=== PATIENT | female | born 1985 | race African-American/Black ===

== ENCOUNTER 2023-05-29 18:21 | Inpatient (IN) | payer MEDICAID, OTHER, SELFPAY ==
[2023-05-29] MEDS ORDERED: Acetaminophen 500 MG TAB ONE (19:02)
[2023-05-29] MEDS ORDERED: Cefepime 2 GM VIAL ONE (19:02)
[2023-05-29] MEDS ORDERED: Sodium Chloride 0.9% 100 ML ONE (19:02)
[2023-05-29 19:16] LABS: #Basophils 0.04 10x3/uL (0.0-0.2); %Basophils 0.3 % (0.0-1.0); %Eosinophils 0.3 % (0.0-10.0); %Lymphocytes 14.2 % (21.0-51.0); %Monocytes 7.3 % (0.0-10.0); %Neutrophils 77.6 % (42.0-75.0); Hematocrit 34.4 % (36.0-47.0); Hemoglobin 10.1 g/dL (12.0-16.0); Mean Corpuscular HGB CONC 29.4 g/dL (32.0-36.0); Mean Corpuscular Hemoglobin 24.1 pg (27.0-31.0); Mean Corpuscular Volume 82.1 fL (78.0-98.0); Mean Platelet Volume 9.7 fL (7.4-10.4); Platelet Count 262 10x3/uL (130-400); RBC Distribution Width 19.2 % (11.5-14.5); Red Blood Cell (RBC) Count 4.19 mill/uL (4.20-5.40)
[2023-05-29 19:32] LABS: BHCG - Serum Negative (NEGATIVE); Pregs Control Background? CLEAR/WHITE (CLR/WHITE); Pregs Control Bar Appear? YES (CONTROL BAR)
[2023-05-29 19:34] LABS: Anion Gap 19 mmol/L (10-20); Globulin 5.3 g/dL (2.4-3.5)
[2023-05-29 19:37] LABS: Acetaminophen Less than 10 mcg/mL (10.0-30.0); Alcohol Less than 10.0 mg/dL (Less than 10); Lipase 38 U/L (8-78); Magnesium 1.6 mg/dL (1.6-2.6); Salicylate Less than 8.0 mg/dL (15.0-30.0)
[2023-05-29 19:42] LABS: ALT (SGPT) 15 U/L (8-55); AST (SGOT) 15 U/L (5-34); Albumin 2.7 g/dL (3.5-5.0); Alkaline Phosphatase 137 U/L (40-110); BUN (Urea Nitrogen) 15 mg/dL (7.0-18.7); Bilirubin, Total 0.6 mg/dL (0.2-1.2); Calc. Creatinine Clearance 0 mL/min (70-130); Calcium 9.1 mg/dL (7.8-10.44); Carbon Dioxide 19 mmol/L (22-29); Chloride 97 mmol/L (98-107); Estimated GFR 37; Glucose 489 mg/dL (70-105); Sodium 131 mmol/L (136-145)
[2023-05-29 20:08] LABS: Amphetamine Not Detected (NotDetected); Bacteria/HPF None Seen HPF (None Seen); Barbiturates Screen Not Detected (NotDetected); Benzodiazepine Screen Not Detected (NotDetected); Bilirubin Negative (Negative); Blood, Urine 3+ (Negative); CAUTI Indications for Culture Pelvic or flank pain; Cocaine Metabolite Screen Not Detected (NotDetected); Glucose, Urine (Dipstick) Greater than 1000 mg/dL (Negative); Ketone, Urine Negative (Negative); Leukocyte 250 Leu/uL (Negative); Methadone Not Detected (NotDetected); Methamphetamine Not Detected (NotDetected); Nitrite Negative (Negative); Opiate Screen Not Detected (NotDetected); Oxycodone Screen Not Detected (NotDetected); Phencyclidine (PCP) Not Detected (NotDetected); Protein, Urine (Dipstick) 100 mg/dL (Neg-Trace); RBC/HPF Greater than 50 HPF (0-3); Specific Gravity, Urine 1.017 (1.002-1.036); Squamous Epithelial 0-3 HPF (0-3); THC/Cannabinoid Screen Not Detected (NotDetected); Tricyclic Screen Not Detected (NotDetected); Urobilinogen Normal mg/dL (Less than 2); WBC/HPF 0-3 HPF (0-3)
[2023-05-29 20:10] LABS: Clarity Slightly Cloudy (Clear)
[2023-05-29 20:11] LABS: Urine Culture Reflex No No
[2023-05-29 20:30] LABS: Actual Bicarbonate (HCO3v) 26.1 mEq/L (22-28); Calcium, Ionized (venous) 1.15 mmol/L (1.16-1.32); Chloride (VBG) 95 mmol/L (98-106); Hematocrit-VBG 32 % (36.0-47.0); Potassium (VBG) 4.17 mmol/L (3.70-5.30); Sodium 135 mmol/L (133-146); pH (venous) 7.343 (7.32-7.43)
[2023-05-29] MEDS ORDERED: Morphine 4 MG/ML VIAL ONE (21:10)
[2023-05-29] MEDS ORDERED: Ondansetron PF 4 MG/2 ML Vial ONE (21:10)
[2023-05-29 22:20] LABS: Lactic Acid 3.3 mmol/L (0.5-2.2)
[2023-05-29] MEDS ORDERED: Insulin Regular 300 UNITS/3 ML VIAL ONE (23:20)
[2023-05-29 23:46] LABS: Influenza A by NAA Not Detected (NotDetected); Influenza B by NAA Not Detected (NotDetected); SARS-CoV-2 NAA Rapid Test Not Detected (NotDetected)
[2023-05-30] MEDS ORDERED: Ketorolac Tromethamine 30 MG (1 mL) VIAL ONE (00:53)
[2023-05-30] MEDS ORDERED: Morphine 4 MG/ML VIAL ONE (00:53)
[2023-05-30] MEDS ORDERED: Acetaminophen 325 MG TAB PO PRN ×2 (02:15→02:38)
[2023-05-30] MEDS ORDERED: Ondansetron ODT 4 MG TAB SL PRN (02:15)
[2023-05-30] MEDS ORDERED: Ondansetron PF 4 MG/2 ML Vial IVP PRN (02:15)
[2023-05-30] MEDS ORDERED: Ondansetron ODT 4 MG TAB PO PRN (02:38)
[2023-05-30] MEDS ORDERED: Dextrose 50% Abboject 50 ML SYRINGE SLOW IVP PRN ×2 (02:40→15:52)
[2023-05-30] MEDS ORDERED: Glucagon 1 MG/ML KIT IM PRN ×2 (02:40→15:52)
[2023-05-30] MEDS ORDERED: Dextrose 5% in Water 1,000 ML IV PRN ×2 (02:40→15:52)
[2023-05-30] MEDS ORDERED: HumaLOG 300 UNITS/3 ML VIAL SC PRN (02:40)
[2023-05-30] MEDS ORDERED: Acetaminophen 500 MG TAB ONE (03:08)
[2023-05-30 03:55] LABS: #Basophils 0.03 10x3/uL (0.0-0.2); %Basophils 0.2 % (0.0-1.0); %Eosinophils 0.2 % (0.0-10.0); %Lymphocytes 11.1 % (21.0-51.0); %Monocytes 7.5 % (0.0-10.0); %Neutrophils 80.5 % (42.0-75.0); Hematocrit 31.2 % (36.0-47.0); Mean Corpuscular HGB CONC 28.8 g/dL (32.0-36.0); Mean Corpuscular Hemoglobin 23.6 pg (27.0-31.0); Mean Corpuscular Volume 81.9 fL (78.0-98.0); Mean Platelet Volume 9.7 fL (7.4-10.4); Platelet Count 239 10x3/uL (130-400); RBC Distribution Width 18.9 % (11.5-14.5); Red Blood Cell (RBC) Count 3.81 mill/uL (4.20-5.40)
[2023-05-30 03:57] LABS: Hemoglobin A1c 13.7 % (4.0-6.0)
[2023-05-30 04:24] LABS: Anion Gap 12 mmol/L (10-20); Globulin 4.7 g/dL (2.4-3.5)
[2023-05-30 04:28] LABS: ALT (SGPT) 12 U/L (8-55); AST (SGOT) 10 U/L (5-34); Albumin 2.4 g/dL (3.5-5.0); Alkaline Phosphatase 112 U/L (40-110); BUN (Urea Nitrogen) 15 mg/dL (7.0-18.7); Bilirubin, Total 0.6 mg/dL (0.2-1.2); Calc. Creatinine Clearance 0 mL/min (70-130); Calcium 8.5 mg/dL (7.8-10.44); Carbon Dioxide 25 mmol/L (22-29); Estimated GFR 33; Glucose 357 mg/dL (70-105); Potassium 4.3 mmol/L (3.5-5.1); Protein, Total 7.1 g/dL (6.0-8.3); Sodium 133 mmol/L (136-145)
[2023-05-30 04:52] LABS: Chloride 100 mmol/L (98-107)
[2023-05-30] MEDS ORDERED: Doxycycline 100 MG in Sodium Chloride 0.9% 100 ML IVPB SCH (05:00)
[2023-05-30 05:03] LABS: Anisocytosis SLIGHT = 6-15 cells HPF (0-5); Hypochromia SLIGHT = 6-15 cells HPF (0-5); Microcytosis SLIGHT = 6-15 cells HPF (0-5); Platelet Adequacy Comment Platelets Normal; Polychromasia SLIGHT = 2-3 cells HPF (0-2)
[2023-05-30] MEDS: Piperacillin/Tazobactam 3.375 GM in Sodium Chloride 0.9% 100 ML IVPB SCH (05:23)
[2023-05-30] MEDS: Piperacillin/Tazobactam 4.5 GM in Sodium Chloride 0.9% 100 ML IVPB SCH ×2 (05:49→08:35)
[2023-05-30] MEDS: Lactated Ringer's 1,000 ML IV SCH ×2 (05:52→07:09)
[2023-05-30] MEDS: Doxycycline 100 MG in Sodium Chloride 0.9% 100 ML IVPB SCH (06:10)
[2023-05-30] MEDS: HumaLOG 300 UNITS/3 ML VIAL SC PRN (06:17)
[2023-05-30] MEDS: Vancomycin (BATCH) 2.5 GM in Premix 1 BAG IVPB SCH (07:10)
[2023-05-30] MEDS: Famotidine/PF 20 mg/2ml Vial SLOW IVP SCH (08:36)
[2023-05-30] MEDS: Famotidine 20 MG TAB PO SCH (08:37)
[2023-05-30] MEDS: Acetaminophen 650 MG Suppository PR PRN (08:38)
[2023-05-30] MEDS ORDERED: PROPOFOL 20 ML ONE (13:31)
[2023-05-30] MEDS ORDERED: Lidocaine 1% PF 5 ML VIAL ONE (13:31)
[2023-05-30] MEDS ORDERED: Ondansetron PF 4 MG/2 ML Vial ONE (13:31)
[2023-05-30] MEDS ORDERED: Dexamethasone 20 MG/5 ML VIAL ONE (13:31)
[2023-05-30] MEDS ORDERED: SUCCINYLCHOLINE/SOD CL,ISO/PF 200 MG/10 ML SYRINGE FS ONE (13:31)
[2023-05-30] MEDS ORDERED: Rocuronium Bromide 10 MG/ML (10ML VIAL) ONE (13:31)
[2023-05-30] MEDS ORDERED: fentaNYL PF 100 MCG/2 ML SYRINGE ONE (13:33)
[2023-05-30] MEDS ORDERED: EPINEPHrine 1 MG/ML VIAL ONE (13:34)
[2023-05-30] MEDS ORDERED: Bupivacaine PF 0.5% 30 ML VIAL ONE (13:34)
[2023-05-30] MEDS ORDERED: PHENYLEPHRINE-NS 100 MCG/ML 10 ML SYRINGE ONE (14:31)
[2023-05-30] MEDS ORDERED: SUGAMMADEX SODIUM 200 MG/2 ML VIAL ONE ×2 (15:22→15:28)
[2023-05-30] MEDS ORDERED: Ventilator Sedation Protocol 1 EACH FS SCH (15:43)
[2023-05-30] MEDS ORDERED: DISCONTINUE PREVIOUS NARCOTIC PAIN MEDICATIONS AND BENZODIAZEPINES FS SCH (16:15)
[2023-05-30] MEDS ORDERED: Fentanyl BOLUS 250 ML IVPB PRN (16:15)
[2023-05-30] MEDS ORDERED: Propofol BOLUS 1,000 MG/100 ML VIAL IV PRN (16:15)
[2023-05-30 16:57] LABS: Actual Bicarbonate (HCO3a) 23.4 mEq/L (22-28); Base Excess (BEa) -2.5 mEq/L (-2.0 to +3.0); CO2 Tension 45.8 mmHg (35.0-45.0); Calcium, Ionized (arterial) 1.03 mmol/L (1.12-1.30); Carboxyhemoglobin (COHb) 1.5 gm% (0.0-3.0); Hematocrit-ABG 27 % (36.0-47.0); Hemoglobin (Hb) 9.1 g/dL (12.0-16.0); O2 Tension (PaO2), arterial 64.9 mmHg (80.0-100.0); Potassium - ABG Lab 4.62 mmol/L (3.70-5.30); pH, Arterial 7.327 (7.35-7.45)
[2023-05-30 16:58] LABS: Puncture Site LRA
[2023-05-30] MEDS: Fentanyl CADD 100 ML IV SCH (16:59)
[2023-05-30] MEDS: Lorazepam 2 MG/ML VIAL ONE (16:59)
[2023-05-30] MEDS: Sodium Chloride 0.9% 1,000 ML IV SCH (17:02)
[2023-05-30] MEDS: Acetaminophen 500 MG TAB PO SCH (17:52)
[2023-05-30] MEDS: Propofol 1,000 MG/100 ML VIAL IV PRN (17:52)
[2023-05-30] MEDS: Albumin 25% 25 GM (100 mL) BOT IVPB SCH ×2 (17:53→22:14)
[2023-05-30] MEDS: Ventilator Sedation Protocol 1 EACH FS ONE (18:17)
[2023-05-30] MEDS ORDERED: Vancomycin (BATCH) 1.75 GM in Premix 1 BAG IVPB SCH (20:00)
[2023-05-30] MEDS ORDERED: Vancomycin (BATCH) 2 GM in Premix 1 BAG IVPB SCH (20:00)
[2023-05-30] MEDS: Enoxaparin 60 MG (0.6 mL) SYRINGE SC SCH (20:39)
[2023-05-30] MEDS ORDERED: Famotidine 20 MG TAB PO SCH (21:00)
[2023-05-30] MEDS ORDERED: Famotidine/PF 20 mg/2ml Vial SLOW IVP SCH (21:00)
[2023-05-30] MEDS: Lorazepam 2 MG/ML VIAL SLOW IVP PRN (21:18)
[2023-05-30] MEDS: Insulin Glargine 30 UNITS/0.3 ML VIAL SC SCH (21:18)
[2023-05-31] MEDS: HumaLOG 300 UNITS/3 ML VIAL SC PRN (04:31)
[2023-05-31 06:09] LABS: #Basophils 0.03 10x3/uL (0.0-0.2); %Basophils 0.2 % (0.0-1.0); %Eosinophils 0.5 % (0.0-10.0); %Lymphocytes 12.9 % (21.0-51.0); %Monocytes 9.3 % (0.0-10.0); %Neutrophils 76.5 % (42.0-75.0); Hematocrit 25.1 % (36.0-47.0); Mean Corpuscular HGB CONC 27.9 g/dL (32.0-36.0); Mean Platelet Volume 10.1 fL (7.4-10.4); Platelet Count 193 10x3/uL (130-400); RBC Distribution Width 19.5 % (11.5-14.5); Red Blood Cell (RBC) Count 2.92 mill/uL (4.20-5.40)
[2023-05-31 06:30] LABS: Hypochromia SLIGHT = 6-15 cells HPF (0-5); Platelet Adequacy Comment Platelets Normal; Polychromasia SLIGHT = 2-3 cells HPF (0-2)
[2023-05-31 06:58] LABS: Anion Gap 14 mmol/L (10-20)
[2023-05-31 07:40] LABS: BUN (Urea Nitrogen) 22 mg/dL (7.0-18.7); Calc. Creatinine Clearance 85 mL/min (70-130); Calcium 7.7 mg/dL (7.8-10.44); Carbon Dioxide 23 mmol/L (22-29); Chloride 102 mmol/L (98-107); Estimated GFR 17; Glucose 381 mg/dL (70-105); Potassium 4.7 mmol/L (3.5-5.1); Sodium 134 mmol/L (136-145)
[2023-05-31] MEDS: Sodium Chloride 0.9% 1,000 ML IV SCH ×2 (08:21)
[2023-05-31] MEDS: Pantoprazole 40 MG VIAL IVP SCH (08:35)
[2023-05-31] MEDS: methylPREDNISolone Sod Succ 40 MG VIAL IVP SCH ×2 (12:24→16:13)
[2023-05-31 12:28] LABS: #Basophils 0.03 10x3/uL (0.0-0.2); %Basophils 0.2 % (0.0-1.0); %Eosinophils 0.5 % (0.0-10.0); %Lymphocytes 13.3 % (21.0-51.0); %Monocytes 9.3 % (0.0-10.0); %Neutrophils 75.8 % (42.0-75.0); Hematocrit 27.7 % (36.0-47.0); Hemoglobin 7.9 g/dL (12.0-16.0); Mean Corpuscular HGB CONC 28.5 g/dL (32.0-36.0); Mean Corpuscular Hemoglobin 24.6 pg (27.0-31.0); Mean Corpuscular Volume 86.3 fL (78.0-98.0); Mean Platelet Volume 10.2 fL (7.4-10.4); Platelet Count 218 10x3/uL (130-400); RBC Distribution Width 19.2 % (11.5-14.5); Red Blood Cell (RBC) Count 3.21 mill/uL (4.20-5.40)
[2023-05-31 13:38] LABS: Bacteria/HPF None Seen HPF (None Seen); Bilirubin Negative (Negative); Blood, Urine 2+ (Negative); Clarity Turbid (Clear); Glucose, Urine (Dipstick) 70 mg/dL (Negative); Ketone, Urine Trace mg/dL (Negative); Leukocyte 500 Leu/uL (Negative); Nitrite Negative (Negative); Protein, Urine (Dipstick) 100 mg/dL (Neg-Trace); Specific Gravity, Urine 1.031 (1.002-1.036); Squamous Epithelial 0-3 HPF (0-3); Urobilinogen Normal mg/dL (Less than 2); pH, Urine 5.5 (5.0-9.0)
[2023-05-31] MEDS: Doxycycline 100 MG in Sodium Chloride 0.9% 100 ML IVPB SCH (16:12)
[2023-06-01] MEDS: Morphine 2 MG/ML VIAL SLOW IVP PRN (03:37)
[2023-06-01 06:01] LABS: #Basophils Less than 0.03 10x3/uL (0.0-0.2); #Eosinphils Less than 0.03 10x3/uL (0.0-0.7); %Basophils 0.1 % (0.0-1.0); %Lymphocytes 5.3 % (21.0-51.0); %Monocytes 4.7 % (0.0-10.0); Hematocrit 32.7 % (36.0-47.0); Hemoglobin 9.1 g/dL (12.0-16.0); Mean Corpuscular HGB CONC 27.8 g/dL (32.0-36.0); Mean Corpuscular Hemoglobin 25.1 pg (27.0-31.0); Mean Corpuscular Volume 90.1 fL (78.0-98.0); Mean Platelet Volume 10.2 fL (7.4-10.4); Platelet Count 269 10x3/uL (130-400); RBC Distribution Width 19.3 % (11.5-14.5); Red Blood Cell (RBC) Count 3.63 mill/uL (4.20-5.40)
[2023-06-01 06:10] LABS: Anion Gap 24 mmol/L (10-20); Globulin 5.3 g/dL (2.4-3.5)
[2023-06-01 06:20] LABS: ALT (SGPT) 39 U/L (8-55); AST (SGOT) 103 U/L (5-34); Albumin 2.4 g/dL (3.5-5.0); Alkaline Phosphatase 87 U/L (40-110); BUN (Urea Nitrogen) 33 mg/dL (7.0-18.7); Calc. Creatinine Clearance 52 mL/min (70-130); Calcium 7.4 mg/dL (7.8-10.44); Carbon Dioxide 13 mmol/L (22-29); Chloride 102 mmol/L (98-107); Estimated GFR 9; Glucose 446 mg/dL (70-105); Potassium 6.4 mmol/L (3.5-5.1); Protein, Total 7.7 g/dL (6.0-8.3); Sodium 133 mmol/L (136-145)
[2023-06-01] MEDS: Insulin Regular 300 UNITS/3 ML VIAL IVP SCH (06:35)
[2023-06-01] MEDS: Sodium Bicarb 50 mEq/50 ML VIAL IVP SCH ×2 (06:35→10:08)
[2023-06-01] MEDS: Calcium Chloride 13.6 MEQ in Sodium Chloride 0.9% 100 ML IVPB SCH (06:38)
[2023-06-01] MEDS ORDERED: [UNRECOGNIZED DRUG - REMARK] IVPB PRN (07:36)
[2023-06-01 07:48] LABS: Base Excess (BEa) -14.4 mEq/L (-2.0 to +3.0); CO2 Tension 45.3 mmHg (35.0-45.0); Calcium, Ionized (arterial) 0.97 mmol/L (1.12-1.30); Carboxyhemoglobin (COHb) 1.6 gm% (0.0-3.0); Hematocrit-ABG 28 % (36.0-47.0); Hemoglobin (Hb) 9.6 g/dL (12.0-16.0); Potassium - ABG Lab 5.41 mmol/L (3.70-5.30)
[2023-06-01 07:53] LABS: O2 Tension (PaO2), arterial 58.4 mmHg (80.0-100.0); pH, Arterial 7.116 (7.35-7.45)
[2023-06-01 07:54] LABS: ALV-art Gradient 170.175 mmHg (0-20); Actual Bicarbonate (HCO3a) 14.3 mEq/L (22-28); Puncture Site RRA
[2023-06-01] MEDS ORDERED: Heparin 10,000 UNITS/ 10 ML VIAL ONE ×2 (08:39→10:03)
[2023-06-01] MEDS: Piperacillin/Tazobactam 2.25 GM in Sodium Chloride 0.9% 100 ML IVPB SCH (08:59)
[2023-06-01] MEDS: Enoxaparin 30 MG (0.3 mL) SYRINGE SC SCH (08:59)
[2023-06-01] MEDS ORDERED: CEFAZOLIN 2 GM in Sodium Chloride 0.9% 100 ML IVPB SCH (09:30)
[2023-06-01 09:57] LABS: Base Excess (BEa) -13.8 mEq/L (-2.0 to +3.0); CO2 Tension 35.2 mmHg (35.0-45.0); Calcium, Ionized (arterial) 0.96 mmol/L (1.12-1.30); Carboxyhemoglobin (COHb) 1.3 gm% (0.0-3.0); Hematocrit-ABG 27 % (36.0-47.0); Hemoglobin (Hb) 9.1 g/dL (12.0-16.0); O2 Tension (PaO2), arterial 69.2 mmHg (80.0-100.0); Potassium - ABG Lab 5.99 mmol/L (3.70-5.30)
[2023-06-01] MEDS ORDERED: Piperacillin/Tazobactam 3.375 GM in Sodium Chloride 0.9% 100 ML IVPB SCH (10:00)
[2023-06-01 10:01] LABS: pH, Arterial 7.194 (7.35-7.45)
[2023-06-01 10:02] LABS: Actual Bicarbonate (HCO3a) 13.3 mEq/L (22-28); Puncture Site RRA
[2023-06-01] MEDS ORDERED: Bupivacaine 0.25% HCL 30 ML VIAL ONE (10:03)
[2023-06-01] MEDS ORDERED: Iopamidol 15 ML ONE (10:03)
[2023-06-01] MEDS ORDERED: EPINEPHrine 1 MG/ML VIAL ONE (10:03)
[2023-06-01] MEDS ORDERED: Lidocaine 2% PF 5 ML VIAL ONE (10:03)
[2023-06-01] MEDS: Sodium Bicarb 50 mEq/50 ML VIAL ONE (10:08)
[2023-06-01 10:11] LABS: Anion Gap 26 mmol/L (10-20)
[2023-06-01 10:30] LABS: BUN (Urea Nitrogen) 34 mg/dL (7.0-18.7); Calc. Creatinine Clearance 51 mL/min (70-130); Calcium 7.8 mg/dL (7.8-10.44); Carbon Dioxide 13 mmol/L (22-29); Chloride 103 mmol/L (98-107); Estimated GFR 9; Glucose 415 mg/dL (70-105); Potassium 5.5 mmol/L (3.5-5.1); Sodium 136 mmol/L (136-145)
[2023-06-01] MEDS ORDERED: Midazolam HCl 5 mg/ml Vial ONE (11:16)
[2023-06-01] MEDS ORDERED: Sterile Water 10 ML ONE (11:19)
[2023-06-01 11:36] LABS: Anion Gap 24 mmol/L (10-20); BUN (Urea Nitrogen) 34 mg/dL (7.0-18.7); Calc. Creatinine Clearance 51 mL/min (70-130); Calcium 7.8 mg/dL (7.8-10.44); Carbon Dioxide 15 mmol/L (22-29); Chloride 102 mmol/L (98-107); Estimated GFR 9; Potassium 5.6 mmol/L (3.5-5.1); Sodium 135 mmol/L (136-145)
[2023-06-01 11:42] LABS: Glucose 433 mg/dL (70-105)
[2023-06-01] MEDS: methylPREDNISolone Sod Succ 40 MG VIAL IVP SCH (11:53)
[2023-06-01 16:21] LABS: HBSAB Concentration Less than 8.00 mIU/mL; HBsAg Index 0.53 S/CO (0-0.99); Hep B Core Total Ab NONREACTIVE (NonReactive); Hep B Core Total Index 0.24 S/CO (0-0.79); Hep B Surf AB NONREACTIVE (NonReactive); Hep B Surf Ag NONREACTIVE S/CO (NonReactive); Hep C IgG Ab NONREACTIVE S/CO (NonReactive); Hep C Index 0.13 S/CO (0-0.79)
[2023-06-01 16:49] LABS: Anion Gap 22 mmol/L (10-20)
[2023-06-01 16:52] LABS: BUN (Urea Nitrogen) 29 mg/dL (7.0-18.7); Calc. Creatinine Clearance 66 mL/min (70-130); Calcium 8.2 mg/dL (7.8-10.44); Carbon Dioxide 18 mmol/L (22-29); Chloride 101 mmol/L (98-107); Estimated GFR 12; Glucose 349 mg/dL (70-105); Potassium 4.4 mmol/L (3.5-5.1); Sodium 137 mmol/L (136-145)
[2023-06-01] MEDS: HumaLOG 300 UNITS/3 ML VIAL SC PRN (17:46)
[2023-06-02] MEDS: Insulin Reg, Human 100 UNITS in Sodium Chloride 0.9% 100 ML IVPB SCH (02:53)
[2023-06-02] MEDS: Labetalol HCl 100 MG/20 ML VIAL SLOW IVP PRN (04:00)
[2023-06-02 04:39] LABS: #Basophils 0.01 10x3/uL (0.0-0.2); #Monocytes 0.92 10x3/uL (0.11-0.59); #Neutrophils 10.81 10x3/uL (1.40-6.50); %Basophils 0.1 % (0.0-1.0); %Lymphocytes 5.4 % (21.0-51.0); %Monocytes 7.3 % (0.0-10.0); %Neutrophils 86.2 % (42.0-75.0); Hematocrit 26.9 % (36.0-47.0); Hemoglobin 8.1 g/dL (12.0-16.0); Mean Corpuscular HGB CONC 30.1 g/dL (32.0-36.0); Mean Corpuscular Hemoglobin 25.1 pg (27.0-31.0); Mean Corpuscular Volume 83.3 fL (78.0-98.0); Platelet Count 280 10x3/uL (130-400); RBC Distribution Width 19.1 % (11.5-14.5); Red Blood Cell (RBC) Count 3.23 mill/uL (4.20-5.40); White Blood Cell (WBC) Count 12.54 10x3/uL (4.8-10.8)
[2023-06-02 05:20] LABS: Phosphorus 4.2 mg/dL (2.3-4.7)
[2023-06-02] MEDS: Acetaminophen 500 MG TAB PO PRN (05:23)
[2023-06-02] MEDS: hydrALAZINE 20 MG/ML VIAL SLOW IVP PRN (05:35)
[2023-06-02 05:58] LABS: Anion Gap 22 mmol/L (10-20); Globulin 5.1 g/dL (2.4-3.5)
[2023-06-02 06:02] LABS: ALT (SGPT) 41 U/L (8-55); AST (SGOT) 84 U/L (5-34); Albumin 2.1 g/dL (3.5-5.0); Alkaline Phosphatase 70 U/L (40-110); BUN (Urea Nitrogen) 38 mg/dL (7.0-18.7); Bilirubin, Total 0.7 mg/dL (0.2-1.2); Calc. Creatinine Clearance 54 mL/min (70-130); Calcium 7.9 mg/dL (7.8-10.44); Carbon Dioxide 17 mmol/L (22-29); Chloride 102 mmol/L (98-107); Estimated GFR 9; Glucose 345 mg/dL (70-105); Potassium 4.2 mmol/L (3.5-5.1); Protein, Total 7.2 g/dL (6.0-8.3); Sodium 137 mmol/L (136-145)
[2023-06-02 06:39] LABS: Actual Bicarbonate (HCO3a) 19.3 mEq/L (22-28); Base Excess (BEa) -5.4 mEq/L (-2.0 to +3.0); CO2 Tension 34.7 mmHg (35.0-45.0); Calcium, Ionized (arterial) 0.95 mmol/L (1.12-1.30); Carboxyhemoglobin (COHb) 1.3 gm% (0.0-3.0); Hematocrit-ABG 26 % (36.0-47.0); O2 Tension (PaO2), arterial 70.7 mmHg (80.0-100.0); Potassium - ABG Lab 4.24 mmol/L (3.70-5.30); pH, Arterial 7.364 (7.35-7.45)
[2023-06-02 06:43] LABS: Puncture Site RRAP
[2023-06-02 06:44] LABS: ALV-art Gradient 242.425 mmHg (0-20)
[2023-06-02] MEDS ORDERED: Heparin 10,000 UNITS/ 10 ML VIAL ONE (08:32)
[2023-06-02] MEDS: Enoxaparin 40 MG (0.4 mL) SYRINGE SC SCH (19:46)
[2023-06-02] MEDS: Insulin Glargine 30 UNITS/0.3 ML VIAL SC SCH (19:46)
[2023-06-02] MEDS ORDERED: Dexmedetomidine In 0.9 % NaCl 100 ML IVPB SCH (21:00)
[2023-06-02] MEDS ORDERED: Dexmedetomidine 1,000 MCG in NS 250 mL IVPB SCH (21:15)
[2023-06-03 04:31] LABS: #Basophils Less than 0.03 10x3/uL (0.0-0.2); #Eosinphils Less than 0.03 10x3/uL (0.0-0.7); %Basophils 0.1 % (0.0-1.0); %Lymphocytes 7.8 % (21.0-51.0); %Monocytes 8.4 % (0.0-10.0); %Neutrophils 82.3 % (42.0-75.0); Hematocrit 29.2 % (36.0-47.0); Hemoglobin 8.3 g/dL (12.0-16.0); Mean Corpuscular HGB CONC 28.4 g/dL (32.0-36.0); Mean Corpuscular Hemoglobin 24.7 pg (27.0-31.0); Mean Corpuscular Volume 86.9 fL (78.0-98.0); Mean Platelet Volume 9.3 fL (7.4-10.4); Platelet Count 285 10x3/uL (130-400); RBC Distribution Width 19.5 % (11.5-14.5); Red Blood Cell (RBC) Count 3.36 mill/uL (4.20-5.40)
[2023-06-03 04:54] LABS: Anion Gap 17 mmol/L (10-20); Globulin 5.6 g/dL (2.4-3.5)
[2023-06-03 04:58] LABS: ALT (SGPT) 34 U/L (8-55); AST (SGOT) 49 U/L (5-34); Albumin 2.2 g/dL (3.5-5.0); Alkaline Phosphatase 70 U/L (40-110); BUN (Urea Nitrogen) 36 mg/dL (7.0-18.7); Bilirubin, Total 0.6 mg/dL (0.2-1.2); Calc. Creatinine Clearance 52 mL/min (70-130); Calcium 8.3 mg/dL (7.8-10.44); Carbon Dioxide 24 mmol/L (22-29); Chloride 101 mmol/L (98-107); Estimated GFR 8; Glucose 213 mg/dL (70-105); Potassium 4.7 mmol/L (3.5-5.1); Protein, Total 7.8 g/dL (6.0-8.3); Sodium 137 mmol/L (136-145)
[2023-06-03 05:58] LABS: Anisocytosis SLIGHT = 6-15 cells HPF (0-5); Microcytosis SLIGHT = 6-15 cells HPF (0-5); Platelet Adequacy Comment Platelets Normal; Polychromasia SLIGHT = 2-3 cells HPF (0-2)
[2023-06-03] MEDS ORDERED: Heparin 10,000 UNITS/ 10 ML VIAL ONE (08:54)
[2023-06-03] MEDS: Insulin Glargine 30 UNITS/0.3 ML VIAL SC SCH (09:06)
[2023-06-03] MEDS: Dexmedetomidine 1,000 MCG in NS 250 mL IVPB SCH (10:11)
[2023-06-03] MEDS: Heparin 5,000 UNITS/ML VIAL SC SCH (20:39)
[2023-06-03] MEDS: methylPREDNISolone Sod Succ 40 MG VIAL IVP SCH (21:13)
[2023-06-04 04:30] LABS: #Basophils Less than 0.03 10x3/uL (0.0-0.2); %Basophils 0.2 % (0.0-1.0); %Eosinophils 0.3 % (0.0-10.0); %Lymphocytes 23.9 % (21.0-51.0); %Neutrophils 61.7 % (42.0-75.0); Hematocrit 28.2 % (36.0-47.0); Hemoglobin 8.1 g/dL (12.0-16.0); Mean Corpuscular HGB CONC 28.7 g/dL (32.0-36.0); Mean Corpuscular Hemoglobin 24.4 pg (27.0-31.0); Mean Corpuscular Volume 84.9 fL (78.0-98.0); Mean Platelet Volume 9.2 fL (7.4-10.4); Platelet Count 265 10x3/uL (130-400); RBC Distribution Width 19.1 % (11.5-14.5); Red Blood Cell (RBC) Count 3.32 mill/uL (4.20-5.40)
[2023-06-04 04:53] LABS: Anion Gap 15 mmol/L (10-20); Iron 80 ug/dL (50-170); Iron Binding Capacity, Total 271 mcg/dL (265-497)
[2023-06-04 04:55] LABS: BUN (Urea Nitrogen) 41 mg/dL (7.0-18.7); Calc. Creatinine Clearance 55 mL/min (70-130); Calcium 8.5 mg/dL (7.8-10.44); Carbon Dioxide 24 mmol/L (22-29); Chloride 101 mmol/L (98-107); Estimated GFR 9; Glucose 178 mg/dL (70-105); Potassium 3.8 mmol/L (3.5-5.1); Sodium 136 mmol/L (136-145)
[2023-06-04 05:40] LABS: Hypochromia SLIGHT = 6-15 cells HPF (0-5); Platelet Adequacy Comment Platelets Normal; Polychromasia SLIGHT = 2-3 cells HPF (0-2)
[2023-06-04] MEDS ORDERED: Heparin 10,000 UNITS/ 10 ML VIAL ONE (08:35)
[2023-06-04] MEDS: EPOETIN ALFA-EPBX 10,000 UNITS/ML VIAL SC SCH (09:21)
[2023-06-04] MEDS: Piperacillin/Tazobactam 3.375 GM in Sodium Chloride 0.9% 100 ML IVPB SCH (14:32)
[2023-06-04] MEDS: Insulin Glargine 30 UNITS/0.3 ML VIAL SC SCH ×2 (21:41→21:42)
[2023-06-05 04:40] LABS: #Basophils Less than 0.03 10x3/uL (0.0-0.2); %Basophils 0.1 % (0.0-1.0); %Eosinophils 0.6 % (0.0-10.0); %Lymphocytes 20.3 % (21.0-51.0); %Monocytes 8.7 % (0.0-10.0); %Neutrophils 68.1 % (42.0-75.0); Hematocrit 26.4 % (36.0-47.0); Hemoglobin 7.7 g/dL (12.0-16.0); Mean Corpuscular HGB CONC 29.2 g/dL (32.0-36.0); Mean Corpuscular Hemoglobin 25.2 pg (27.0-31.0); Mean Corpuscular Volume 86.6 fL (78.0-98.0); Mean Platelet Volume 9.2 fL (7.4-10.4); Platelet Count 252 10x3/uL (130-400); Red Blood Cell (RBC) Count 3.05 mill/uL (4.20-5.40)
[2023-06-05 05:01] LABS: Anion Gap 20 mmol/L (10-20)
[2023-06-05 05:03] LABS: BUN (Urea Nitrogen) 41 mg/dL (7.0-18.7); Calc. Creatinine Clearance 63 mL/min (70-130); Calcium 8.6 mg/dL (7.8-10.44); Carbon Dioxide 23 mmol/L (22-29); Chloride 100 mmol/L (98-107); Estimated GFR 11; Glucose 183 mg/dL (70-105); Potassium 3.5 mmol/L (3.5-5.1); Sodium 139 mmol/L (136-145)
[2023-06-05] MEDS: methylPREDNISolone Sod Succ 40 MG VIAL IVP SCH (08:08)
[2023-06-05] MEDS ORDERED: Insulin NPH Human Isophane 100 UNITS/ML (10 ML VIAL) SC SCH (09:00)
[2023-06-05] MEDS ORDERED: Midazolam HCl 2 mg/2 ml Vial ONE ×2 (10:58→13:40)
[2023-06-05] MEDS ORDERED: Bupivacaine 0.25% HCL 30 ML VIAL ONE (12:09)
[2023-06-05] MEDS ORDERED: EPINEPHrine 1 MG/ML VIAL ONE (12:09)
[2023-06-05] MEDS ORDERED: fentaNYL PF 100 MCG/2 ML SYRINGE ONE (12:46)
[2023-06-05] MEDS ORDERED: ePHEDrine Sulfate 50 MG/10 ML VIAL ONE (12:53)
[2023-06-05] MEDS ORDERED: Rocuronium Bromide 10 MG/ML (10ML VIAL) ONE (13:40)
[2023-06-05] MEDS: Piperacillin/Tazobactam 3.375 GM in Sodium Chloride 0.9% 100 ML IVPB SCH (14:32)
[2023-06-06 05:09] LABS: #Basophils 0.04 10x3/uL (0.0-0.2); %Basophils 0.2 % (0.0-1.0); %Eosinophils 1.3 % (0.0-10.0); %Lymphocytes 17.6 % (21.0-51.0); %Monocytes 9.3 % (0.0-10.0); %Neutrophils 69.4 % (42.0-75.0); Hematocrit 25.3 % (36.0-47.0); Hemoglobin 7.1 g/dL (12.0-16.0); Mean Corpuscular HGB CONC 28.1 g/dL (32.0-36.0); Mean Corpuscular Hemoglobin 25.4 pg (27.0-31.0); Mean Corpuscular Volume 90.4 fL (78.0-98.0); Mean Platelet Volume 9.3 fL (7.4-10.4); Platelet Count 239 10x3/uL (130-400); RBC Distribution Width 19.9 % (11.5-14.5)
[2023-06-06 05:23] LABS: Anion Gap 19 mmol/L (10-20)
[2023-06-06 05:26] LABS: BUN (Urea Nitrogen) 68 mg/dL (7.0-18.7); Calc. Creatinine Clearance 46 mL/min (70-130); Calcium 8.6 mg/dL (7.8-10.44); Carbon Dioxide 22 mmol/L (22-29); Chloride 103 mmol/L (98-107); Estimated GFR 7; Glucose 146 mg/dL (70-105); Potassium 3.8 mmol/L (3.5-5.1); Sodium 140 mmol/L (136-145)
[2023-06-06 05:36] LABS: Anisocytosis MODERATE=16-30 cells HPF (0-5); Hypochromia SLIGHT = 6-15 cells HPF (0-5); Platelet Adequacy Comment Platelets Normal; Polychromasia SLIGHT = 2-3 cells HPF (0-2)
[2023-06-06] MEDS: Heparin 10,000 UNITS/ 10 ML VIAL FS SCH ×2 (08:09→08:10)
[2023-06-06] MEDS: Albumin 25% 0 ML ONE (08:34)
[2023-06-06] MEDS: metroNIDAZOLE 500 MG in Premix 1 BAG IVPB SCH ×2 (09:50→17:01)
[2023-06-06 10:06] LABS: HIV (1/2) Antibody/Antigen NONREACTIVE (NonReactive); HIV 1/2 INDEX 0.05 S/CO (<1.00)
[2023-06-06] MEDS: Albumin 25% 25 GM (100 mL) BOT IVPB SCH (13:18)
[2023-06-06 13:37] LABS: Syphilis Antibody Index 29.45 S/CO (<1.00 Non-Reactive)
[2023-06-06 14:42] LABS: Syphilis Antibody REACTIVE (Nonreactive)
[2023-06-06 19:27] LABS: Hematocrit 28.1 % (36.0-47.0); Hemoglobin 8.3 g/dL (12.0-16.0); Platelet Count 248 10x3/uL (130-400)
[2023-06-07 04:35] LABS: Anion Gap 23 mmol/L (10-20)
[2023-06-07 04:37] LABS: #Basophils 0.05 10x3/uL (0.0-0.2); %Basophils 0.3 % (0.0-1.0); %Eosinophils 1.6 % (0.0-10.0); %Lymphocytes 12.6 % (21.0-51.0); %Monocytes 9.7 % (0.0-10.0); %Neutrophils 74.2 % (42.0-75.0); Hematocrit 29.3 % (36.0-47.0); Hemoglobin 8.4 g/dL (12.0-16.0); Mean Corpuscular HGB CONC 28.7 g/dL (32.0-36.0); Mean Corpuscular Hemoglobin 25.8 pg (27.0-31.0); Mean Corpuscular Volume 89.9 fL (78.0-98.0); Mean Platelet Volume 9.6 fL (7.4-10.4); Platelet Count 292 10x3/uL (130-400); RBC Distribution Width 20.4 % (11.5-14.5); Red Blood Cell (RBC) Count 3.26 mill/uL (4.20-5.40)
[2023-06-07 04:38] LABS: BUN (Urea Nitrogen) 61 mg/dL (7.0-18.7); Calc. Creatinine Clearance 49 mL/min (70-130); Calcium 9.3 mg/dL (7.8-10.44); Carbon Dioxide 20 mmol/L (22-29); Chloride 102 mmol/L (98-107); Estimated GFR 8; Glucose 172 mg/dL (70-105); Potassium 3.8 mmol/L (3.5-5.1); Sodium 141 mmol/L (136-145)
[2023-06-07] MEDS: Ondansetron PF 4 MG/2 ML Vial IVP PRN (11:46)
[2023-06-07] MEDS: Activase 2 MG VIAL CATH SCH (11:46)
[2023-06-07] MEDS: Sterile Water 10 ML VIAL IVP SCH (11:47)
[2023-06-08 04:49] LABS: #Basophils 0.04 10x3/uL (0.0-0.2); %Basophils 0.3 % (0.0-1.0); %Eosinophils 0.9 % (0.0-10.0); %Lymphocytes 16.2 % (21.0-51.0); %Monocytes 9.2 % (0.0-10.0); %Neutrophils 71.9 % (42.0-75.0); Hematocrit 25.5 % (36.0-47.0); Hemoglobin 7.3 g/dL (12.0-16.0); Mean Corpuscular HGB CONC 28.6 g/dL (32.0-36.0); Mean Corpuscular Hemoglobin 26.3 pg (27.0-31.0); Mean Corpuscular Volume 91.7 fL (78.0-98.0); Mean Platelet Volume 9.7 fL (7.4-10.4); Platelet Count 298 10x3/uL (130-400); RBC Distribution Width 20.9 % (11.5-14.5); Red Blood Cell (RBC) Count 2.78 mill/uL (4.20-5.40)
[2023-06-08 04:54] LABS: Anion Gap 21 mmol/L (10-20)
[2023-06-08 04:56] LABS: BUN (Urea Nitrogen) 74 mg/dL (7.0-18.7); Calc. Creatinine Clearance 36 mL/min (70-130); Calcium 9.4 mg/dL (7.8-10.44); Carbon Dioxide 19 mmol/L (22-29); Chloride 106 mmol/L (98-107); Estimated GFR 6; Glucose 196 mg/dL (70-105); Potassium 3.9 mmol/L (3.5-5.1); Sodium 142 mmol/L (136-145)
[2023-06-08] MEDS: Ondansetron PF 4 MG/2 ML Vial IVP SCH (12:55)
[2023-06-08 14:14] LABS: Hematocrit 29.8 % (36.0-47.0); Hemoglobin 8.8 g/dL (12.0-16.0); Platelet Count 311 10x3/uL (130-400)
[2023-06-08] MEDS: Scopolamine 1 mg/72 hour Patch TD SCH (20:35)
[2023-06-08] MEDS: Metoprolol Tartrate 25 MG TAB PO SCH (20:35)
[2023-06-09] MEDS ORDERED: ALPRAZolam 0.25 MG TAB PER TUBE SCH (02:45)
[2023-06-09] MEDS: ALPRAZolam 1 MG TAB PER TUBE SCH (02:53)
[2023-06-09 06:41] LABS: Anion Gap 26 mmol/L (10-20)
[2023-06-09 06:44] LABS: BUN (Urea Nitrogen) 55 mg/dL (7.0-18.7); Calc. Creatinine Clearance 46 mL/min (70-130); Calcium 9.4 mg/dL (7.8-10.44); Carbon Dioxide 20 mmol/L (22-29); Chloride 101 mmol/L (98-107); Estimated GFR 8; Glucose 152 mg/dL (70-105); Potassium 3.6 mmol/L (3.5-5.1); Sodium 143 mmol/L (136-145)
[2023-06-09 06:52] LABS: Band 3 % (5-11); Blast 0 % (0-0); Eosinophils 0 % (0-10); Hypochromia SLIGHT = 6-15 cells (100X) (0-5/hpf); Lymphocytes 15 % (21-51); Metamyelocyte 0 % (0-0); Monocytes 9 % (0-10); Myelocyte 0 % (0-0); Neutrophil 73 % (42-75); Plasma Cells 0 % (0-0); Platelet Adequacy Comment Appears Adequate; Promyelocytes 0 % (0-0); Reactive Lymphocytes 0 % (0-10); Total Cell Count 100
[2023-06-09 07:43] LABS: Hematocrit 30.7 % (36.0-47.0); Hemoglobin 8.8 g/dL (12.0-16.0); Mean Corpuscular HGB CONC 28.7 g/dL (32.0-36.0); Mean Corpuscular Hemoglobin 26.7 pg (27.0-31.0); Mean Platelet Volume 9.3 fL (7.4-10.4); Platelet Count 372 10x3/uL (130-400); White Blood Cell (WBC) Count 17.49 10x3/uL (4.8-10.8)
[2023-06-09] MEDS: Polyethylene Glycol 3350 17 GM Packet PO SCH (08:57)
[2023-06-09] MEDS: Metoclopramide HCl 10 MG (2 mL) VIAL IVP SCH (11:29)
[2023-06-09] MEDS: cefTRIAXone\\ROCEPHIN 1 GM in Sodium Chloride 0.9% 100 ML IVPB SCH (11:29)
[2023-06-10 04:49] LABS: %Basophils 0.7 % (0.0-1.0); %Eosinophils 0.9 % (0.0-10.0); %Lymphocytes 11.1 % (21.0-51.0); %Monocytes 9.4 % (0.0-10.0); %Neutrophils 76.3 % (42.0-75.0); Hematocrit 29.2 % (36.0-47.0); Hemoglobin 8.4 g/dL (12.0-16.0); Mean Corpuscular HGB CONC 28.8 g/dL (32.0-36.0); Mean Corpuscular Hemoglobin 26.3 pg (27.0-31.0); Mean Corpuscular Volume 91.5 fL (78.0-98.0); Platelet Count 356 10x3/uL (130-400); Red Blood Cell (RBC) Count 3.19 mill/uL (4.20-5.40)
[2023-06-10 05:01] LABS: Anion Gap 28 mmol/L (10-20)
[2023-06-10 05:03] LABS: BUN (Urea Nitrogen) 66 mg/dL (7.0-18.7); Calc. Creatinine Clearance 38 mL/min (70-130); Calcium 9.4 mg/dL (7.8-10.44); Carbon Dioxide 19 mmol/L (22-29); Chloride 102 mmol/L (98-107); Estimated GFR 6; Glucose 161 mg/dL (70-105); Potassium 3.7 mmol/L (3.5-5.1); Sodium 145 mmol/L (136-145)
[2023-06-10] MEDS ORDERED: Heparin 10,000 UNITS/ 10 ML VIAL ONE (11:13)
[2023-06-10] MEDS: Glycopyrrolate 1 MG TAB PO SCH (17:09)
[2023-06-10] MEDS: Ipratropium/Albuterol 3 ML NEB NEB PRN (19:52)
[2023-06-11 02:26] LABS: %Basophils 0.8 % (0.0-1.0); %Eosinophils 1.1 % (0.0-10.0); %Lymphocytes 12.7 % (21.0-51.0); %Monocytes 8.5 % (0.0-10.0); %Neutrophils 75.5 % (42.0-75.0); Hematocrit 30.1 % (36.0-47.0); Hemoglobin 8.6 g/dL (12.0-16.0); Mean Corpuscular HGB CONC 28.6 g/dL (32.0-36.0); Mean Corpuscular Hemoglobin 26.3 pg (27.0-31.0); Mean Platelet Volume 9.8 fL (7.4-10.4); Platelet Count 286 10x3/uL (130-400); RBC Distribution Width 21.7 % (11.5-14.5); Red Blood Cell (RBC) Count 3.27 mill/uL (4.20-5.40)
[2023-06-11] MEDS: Heparin 10,000 UNITS/ 10 ML VIAL SLOW IVP SCH (02:49)
[2023-06-11] MEDS: Heparin 25,000 units/D5W 500 ML IVPB SCH (02:49)
[2023-06-11 03:01] LABS: Anion Gap 27 mmol/L (10-20); BUN (Urea Nitrogen) 47 mg/dL (7.0-18.7); Calc. Creatinine Clearance 44 mL/min (70-130); Calcium 9.7 mg/dL (7.8-10.44); Carbon Dioxide 18 mmol/L (22-29); Chloride 100 mmol/L (98-107); Estimated GFR 7; Glucose 146 mg/dL (70-105); Potassium 3.9 mmol/L (3.5-5.1); Sodium 141 mmol/L (136-145)
[2023-06-11 05:44] LABS: Free T4 (Free Thyroxine) 0.82 ng/dL (0.70-1.48); Thyroid Stimulating Hormone 1.7771 uIU/mL (0.35-4.94)
[2023-06-11] MEDS ORDERED: Heparin 10,000 UNITS/ 10 ML VIAL ONE (09:39)
[2023-06-11 10:00] LABS: PTT 148.9 sec (22.9-36.1)
[2023-06-11 15:06] LABS: INR-International Normal Ratio 1.2; Prothrombin Time 14.8 sec (12.0-14.7)
[2023-06-11] MEDS ORDERED: Warfarin Sodium 2 MG TAB PO SCH (17:00)
[2023-06-11] MEDS: Warfarin Sodium 5 MG TAB PO SCH (18:41)
[2023-06-11] MEDS: Bicillin LA 2.4 MILL.UNITS/4 ML SYRINGE IM SCH (21:22)
[2023-06-12 04:03] LABS: #Basophils 0.11 10x3/uL (0.0-0.2); %Basophils 0.6 % (0.0-1.0); %Eosinophils 0.8 % (0.0-10.0); %Lymphocytes 15.4 % (21.0-51.0); %Monocytes 8.4 % (0.0-10.0); %Neutrophils 73.1 % (42.0-75.0); Hematocrit 32.8 % (36.0-47.0); Hemoglobin 9.7 g/dL (12.0-16.0); Mean Corpuscular HGB CONC 29.6 g/dL (32.0-36.0); Mean Corpuscular Hemoglobin 27.2 pg (27.0-31.0); Mean Corpuscular Volume 92.1 fL (78.0-98.0); Mean Platelet Volume 8.9 fL (7.4-10.4); Platelet Count 356 10x3/uL (130-400); RBC Distribution Width 21.7 % (11.5-14.5); Red Blood Cell (RBC) Count 3.56 mill/uL (4.20-5.40)
[2023-06-12 04:17] LABS: INR-International Normal Ratio 1.2; Prothrombin Time 15.3 sec (12.0-14.7)
[2023-06-12 04:18] LABS: PTT 55.3 sec (22.9-36.1)
[2023-06-12 04:58] LABS: Anion Gap 22 mmol/L (10-20); BUN (Urea Nitrogen) 43 mg/dL (7.0-18.7); Calc. Creatinine Clearance 43 mL/min (70-130); Calcium 9.2 mg/dL (7.8-10.44); Carbon Dioxide 21 mmol/L (22-29); Chloride 100 mmol/L (98-107); Estimated GFR 7; Glucose 151 mg/dL (70-105); Potassium 3.5 mmol/L (3.5-5.1); Sodium 139 mmol/L (136-145)
[2023-06-12 07:56] LABS: Phosphorus 7.2 mg/dL (2.3-4.7)
[2023-06-12 08:01] LABS: Albumin 2.8 g/dL (3.5-5.0)
[2023-06-12] MEDS ORDERED: Heparin 10,000 UNITS/ 10 ML VIAL ONE (10:00)
[2023-06-12] MEDS ORDERED: Dextrose 50% Abboject 50 ML SYRINGE SLOW IVP PRN (10:28)
[2023-06-12] MEDS ORDERED: Dextrose 5% in Water 1,000 ML IV PRN (10:28)
[2023-06-12] MEDS ORDERED: Glucagon 1 MG/ML KIT IM PRN (10:28)
[2023-06-12] MEDS ORDERED: Loperamide HCl 2 MG CAP PO PRN (10:30)
[2023-06-12] MEDS: Metoprolol Tartrate 50 MG TAB PO SCH (14:20)
[2023-06-12] MEDS: Warfarin Sodium 10 MG TAB PO SCH (17:44)
[2023-06-13 04:25] LABS: #Basophils 0.13 10x3/uL (0.0-0.2); %Basophils 0.8 % (0.0-1.0); %Eosinophils 1.5 % (0.0-10.0); %Monocytes 9.3 % (0.0-10.0); %Neutrophils 69.9 % (42.0-75.0); Hemoglobin 9.7 g/dL (12.0-16.0); Mean Corpuscular HGB CONC 29.4 g/dL (32.0-36.0); Mean Corpuscular Hemoglobin 26.9 pg (27.0-31.0); Mean Corpuscular Volume 91.4 fL (78.0-98.0); Platelet Count 281 10x3/uL (130-400); RBC Distribution Width 22.5 % (11.5-14.5); Red Blood Cell (RBC) Count 3.61 mill/uL (4.20-5.40)
[2023-06-13 04:38] LABS: INR-International Normal Ratio 1.3; Prothrombin Time 16.1 sec (12.0-14.7)
[2023-06-13 04:46] LABS: Anion Gap 19 mmol/L (10-20); BUN (Urea Nitrogen) 31 mg/dL (7.0-18.7); Calc. Creatinine Clearance 54 mL/min (70-130); Calcium 9.2 mg/dL (7.8-10.44); Carbon Dioxide 22 mmol/L (22-29); Chloride 99 mmol/L (98-107); Estimated GFR 9; Glucose 162 mg/dL (70-105); Potassium 3.7 mmol/L (3.5-5.1); Sodium 136 mmol/L (136-145)
[2023-06-13] MEDS ORDERED: Heparin 10,000 UNITS/ 10 ML VIAL ONE (09:02)
[2023-06-13] MEDS: Warfarin Sodium 10 MG TAB PO SCH (16:21)
[2023-06-13] MEDS ORDERED: Warfarin Sodium 5 MG TAB PO SCH (17:00)
[2023-06-13] MEDS: Pantoprazole 40 MG VIAL IVP SCH (22:12)
[2023-06-13] MEDS: Pantoprazole DR 40 MG TAB PO SCH (23:36)
[2023-06-14] MEDS: Activase 2 MG VIAL CATH SCH (01:34)
[2023-06-14] MEDS: Sterile Water 10 ML VIAL FS SCH (01:34)
[2023-06-14 04:22] LABS: #Basophils 0.11 10x3/uL (0.0-0.2); %Basophils 0.7 % (0.0-1.0); %Eosinophils 1.4 % (0.0-10.0); %Lymphocytes 19.7 % (21.0-51.0); %Monocytes 7.3 % (0.0-10.0); %Neutrophils 69.7 % (42.0-75.0); Hematocrit 34.3 % (36.0-47.0); Hemoglobin 10.1 g/dL (12.0-16.0); Mean Corpuscular HGB CONC 29.4 g/dL (32.0-36.0); Mean Corpuscular Hemoglobin 27.8 pg (27.0-31.0); Mean Corpuscular Volume 94.5 fL (78.0-98.0); Mean Platelet Volume 9.3 fL (7.4-10.4); Platelet Count 290 10x3/uL (130-400); RBC Distribution Width 22.8 % (11.5-14.5); Red Blood Cell (RBC) Count 3.63 mill/uL (4.20-5.40)
[2023-06-14 04:43] LABS: INR-International Normal Ratio 1.3; Prothrombin Time 16.5 sec (12.0-14.7)
[2023-06-14 05:07] LABS: Anion Gap 22 mmol/L (10-20); BUN (Urea Nitrogen) 41 mg/dL (7.0-18.7); Calc. Creatinine Clearance 42 mL/min (70-130); Carbon Dioxide 18 mmol/L (22-29); Chloride 98 mmol/L (98-107); Estimated GFR 7; Glucose 118 mg/dL (70-105); Potassium 3.7 mmol/L (3.5-5.1); Sodium 134 mmol/L (136-145)
[2023-06-14] MEDS: Pantoprazole 40 MG VIAL IVP SCH ×2 (08:54→21:46)
[2023-06-14] MEDS ORDERED: Pantoprazole DR 40 MG TAB PO SCH (09:00)
[2023-06-14] MEDS ORDERED: Heparin 25,000 units/D5W 500 ML IVPB SCH (17:00)
[2023-06-14] MEDS ORDERED: Heparin 10,000 UNITS/ 10 ML VIAL SLOW IVP SCH (17:00)
[2023-06-14] MEDS: Warfarin Sodium 5 MG TAB PO SCH (18:57)
[2023-06-14] MEDS: Warfarin Sodium 1 MG TAB PO SCH (18:57)
[2023-06-14] MEDS: Heparin 5,000 UNITS/ML VIAL SC SCH ×2 (18:58→21:46)
[2023-06-14 23:32] LABS: Hemoglobin 9.4 g/dL (12.0-16.0); Platelet Count 220 10x3/uL (130-400)
[2023-06-15 01:40] LABS: Hematocrit 28.8 % (36.0-47.0); Hemoglobin 8.7 g/dL (12.0-16.0); Platelet Count 205 10x3/uL (130-400)
[2023-06-15 04:08] LABS: #Basophils 0.06 10x3/uL (0.0-0.2); %Basophils 0.5 % (0.0-1.0); %Eosinophils 1.6 % (0.0-10.0); %Lymphocytes 20.6 % (21.0-51.0); %Monocytes 8.7 % (0.0-10.0); %Neutrophils 67.5 % (42.0-75.0); Hematocrit 31.7 % (36.0-47.0); Hemoglobin 9.4 g/dL (12.0-16.0); Mean Corpuscular HGB CONC 29.7 g/dL (32.0-36.0); Mean Corpuscular Hemoglobin 27.2 pg (27.0-31.0); Mean Corpuscular Volume 91.6 fL (78.0-98.0); Mean Platelet Volume 9.4 fL (7.4-10.4); Platelet Count 215 10x3/uL (130-400); RBC Distribution Width 23.2 % (11.5-14.5); Red Blood Cell (RBC) Count 3.46 mill/uL (4.20-5.40)
[2023-06-15 04:24] LABS: INR-International Normal Ratio 1.6; Prothrombin Time 19.5 sec (12.0-14.7)
[2023-06-15 04:25] LABS: PTT 35.5 sec (22.9-36.1)
[2023-06-15 07:22] LABS: Albumin 2.9 g/dL (3.5-5.0); Anion Gap 21 mmol/L (10-20); BUN (Urea Nitrogen) 29 mg/dL (7.0-18.7); BUN/Creatinine Ratio 4.63; Calc. Creatinine Clearance 50 mL/min (70-130); Calcium 9.1 mg/dL (7.8-10.44); Carbon Dioxide 20 mmol/L (22-29); Chloride 94 mmol/L (98-107); Estimated GFR 8; Glucose 92 mg/dL (70-105); Phosphorus 5.1 mg/dL (2.3-4.7); Potassium 3.9 mmol/L (3.5-5.1); Sodium 131 mmol/L (136-145)
[2023-06-15] MEDS: Albumin 25% 25 GM (100 mL) BOT IVPB SCH (10:48)
[2023-06-15] MEDS ORDERED: Warfarin Sodium 10 MG TAB PO SCH (17:00)
[2023-06-15] MEDS: traMADol HCl 50 MG TAB PO PRN (21:42)
[2023-06-16 07:56] LABS: #Basophils 0.05 10x3/uL (0.0-0.2); %Basophils 0.5 % (0.0-1.0); %Eosinophils 2.3 % (0.0-10.0); %Lymphocytes 22.5 % (21.0-51.0); %Monocytes 10.5 % (0.0-10.0); %Neutrophils 63.4 % (42.0-75.0); Hematocrit 30.3 % (36.0-47.0); Hemoglobin 9.1 g/dL (12.0-16.0); Mean Corpuscular Hemoglobin 28.3 pg (27.0-31.0); Mean Corpuscular Volume 94.1 fL (78.0-98.0); Mean Platelet Volume 9.4 fL (7.4-10.4); Platelet Count 186 10x3/uL (130-400); RBC Distribution Width 23.7 % (11.5-14.5); Red Blood Cell (RBC) Count 3.22 mill/uL (4.20-5.40)
[2023-06-16 09:51] LABS: INR-International Normal Ratio 2.1; Prothrombin Time 23.8 sec (12.0-14.7)
[2023-06-16 18:05] LABS: Hematocrit 31.3 % (36.0-47.0); Hemoglobin 9.4 g/dL (12.0-16.0); Platelet Count 188 10x3/uL (130-400)
[2023-06-16] MEDS: Loratadine 10 MG TAB PO SCH (20:06)
[2023-06-17 07:28] LABS: Prothrombin Time 23.2 sec (12.0-14.7)
[2023-06-17 08:20] LABS: Anion Gap 19 mmol/L (10-20); BUN (Urea Nitrogen) 41 mg/dL (7.0-18.7); Calc. Creatinine Clearance 38 mL/min (70-130); Calcium 8.5 mg/dL (7.8-10.44); Carbon Dioxide 20 mmol/L (22-29); Chloride 94 mmol/L (98-107); Estimated GFR 6; Glucose 78 mg/dL (70-105); Potassium 3.3 mmol/L (3.5-5.1); Sodium 130 mmol/L (136-145)
[2023-06-17 09:52] LABS: #Basophils 0.05 10x3/uL (0.0-0.2); %Basophils 0.5 % (0.0-1.0); %Lymphocytes 23.5 % (21.0-51.0); %Monocytes 10.6 % (0.0-10.0); %Neutrophils 62.7 % (42.0-75.0); Hematocrit 30.2 % (36.0-47.0); Hemoglobin 8.8 g/dL (12.0-16.0); Mean Corpuscular HGB CONC 29.1 g/dL (32.0-36.0); Mean Corpuscular Hemoglobin 27.9 pg (27.0-31.0); Mean Corpuscular Volume 95.9 fL (78.0-98.0); Platelet Count 211 10x3/uL (130-400); Red Blood Cell (RBC) Count 3.15 mill/uL (4.20-5.40)
[2023-06-17] MEDS: Apixaban 5 MG TAB PO SCH (17:09)
[2023-06-17] MEDS: cefTRIAXone\\ROCEPHIN 1 GM in Sodium Chloride 0.9% 100 ML IVPB SCH (17:12)
[2023-06-18 07:36] LABS: #Basophils 0.05 10x3/uL (0.0-0.2); %Basophils 0.6 % (0.0-1.0); %Eosinophils 2.3 % (0.0-10.0); %Lymphocytes 21.2 % (21.0-51.0); %Monocytes 11.8 % (0.0-10.0); %Neutrophils 63.6 % (42.0-75.0); Hematocrit 32.5 % (36.0-47.0); Hemoglobin 9.5 g/dL (12.0-16.0); Mean Corpuscular HGB CONC 29.2 g/dL (32.0-36.0); Mean Corpuscular Hemoglobin 27.5 pg (27.0-31.0); Mean Corpuscular Volume 93.9 fL (78.0-98.0); Mean Platelet Volume 9.8 fL (7.4-10.4); Platelet Count 183 10x3/uL (130-400); RBC Distribution Width 24.6 % (11.5-14.5); Red Blood Cell (RBC) Count 3.46 mill/uL (4.20-5.40)
[2023-06-18 07:37] LABS: INR-International Normal Ratio 2.3; Prothrombin Time 25.1 sec (12.0-14.7)
[2023-06-18 07:46] LABS: Anion Gap 17 mmol/L (10-20); BUN (Urea Nitrogen) 25 mg/dL (7.0-18.7); Calc. Creatinine Clearance 54 mL/min (70-130); Calcium 8.6 mg/dL (7.8-10.44); Carbon Dioxide 22 mmol/L (22-29); Chloride 97 mmol/L (98-107); Estimated GFR 9; Glucose 147 mg/dL (70-105); Potassium 3.3 mmol/L (3.5-5.1); Sodium 133 mmol/L (136-145)
[2023-06-18] MEDS: Bicillin LA 2.4 MILL.UNITS/4 ML SYRINGE IM SCH (12:46)
[2023-06-18] MEDS: Calcium Carbonate 500 MG ChewTAB PO PRN (17:07)
[2023-06-18 18:08] LABS: Hematocrit 32.9 % (36.0-47.0); Hemoglobin 9.7 g/dL (12.0-16.0); Platelet Count 187 10x3/uL (130-400)
[2023-06-19] MEDS: metroNIDAZOLE 500 MG in Premix 1 BAG IVPB SCH (00:43)
[2023-06-19 07:21] LABS: #Basophils 0.06 10x3/uL (0.0-0.2); %Basophils 0.7 % (0.0-1.0); %Eosinophils 2.9 % (0.0-10.0); %Lymphocytes 28.6 % (21.0-51.0); %Monocytes 12.6 % (0.0-10.0); %Neutrophils 54.9 % (42.0-75.0); Hematocrit 32.4 % (36.0-47.0); Hemoglobin 9.3 g/dL (12.0-16.0); Mean Corpuscular HGB CONC 28.7 g/dL (32.0-36.0); Mean Corpuscular Hemoglobin 27.4 pg (27.0-31.0); Mean Corpuscular Volume 95.6 fL (78.0-98.0); Mean Platelet Volume 9.6 fL (7.4-10.4); Platelet Count 166 10x3/uL (130-400); RBC Distribution Width 24.5 % (11.5-14.5); Red Blood Cell (RBC) Count 3.39 mill/uL (4.20-5.40)
[2023-06-19 07:39] LABS: Anion Gap 18 mmol/L (10-20); BUN (Urea Nitrogen) 31 mg/dL (7.0-18.7); Calc. Creatinine Clearance 46 mL/min (70-130); Calcium 8.6 mg/dL (7.8-10.44); Carbon Dioxide 19 mmol/L (22-29); Chloride 98 mmol/L (98-107); Estimated GFR 8; Glucose 99 mg/dL (70-105); Potassium 3.2 mmol/L (3.5-5.1); Sodium 132 mmol/L (136-145)
[2023-06-19 07:57] LABS: INR-International Normal Ratio 2.5; Prothrombin Time 27.1 sec (12.0-14.7)
[2023-06-19] MEDS: Potassium Chloride 20 MEQ TAB PO SCH (08:17)
[2023-06-19] MEDS ORDERED: Heparin 10,000 UNITS/ 10 ML VIAL ONE (08:30)
[2023-06-19] MEDS: Albumin 25% 25 GM (100 mL) BOT IVPB SCH (12:35)
[2023-06-20 05:53] LABS: #Basophils 0.03 10x3/uL (0.0-0.2); %Basophils 0.3 % (0.0-1.0); %Eosinophils 3.3 % (0.0-10.0); %Monocytes 11.8 % (0.0-10.0); %Neutrophils 62.3 % (42.0-75.0); Hematocrit 30.7 % (36.0-47.0); Hemoglobin 9.1 g/dL (12.0-16.0); Mean Corpuscular HGB CONC 29.6 g/dL (32.0-36.0); Mean Corpuscular Hemoglobin 28.5 pg (27.0-31.0); Mean Corpuscular Volume 96.2 fL (78.0-98.0); Mean Platelet Volume 9.5 fL (7.4-10.4); Platelet Count 164 10x3/uL (130-400); RBC Distribution Width 25.1 % (11.5-14.5); Red Blood Cell (RBC) Count 3.19 mill/uL (4.20-5.40)
[2023-06-20 06:06] LABS: Anion Gap 17 mmol/L (10-20); BUN (Urea Nitrogen) 21 mg/dL (7.0-18.7); Calc. Creatinine Clearance 62 mL/min (70-130); Calcium 8.8 mg/dL (7.8-10.44); Carbon Dioxide 21 mmol/L (22-29); Chloride 100 mmol/L (98-107); Estimated GFR 11; Glucose 135 mg/dL (70-105); Potassium 4.2 mmol/L (3.5-5.1); Sodium 134 mmol/L (136-145)
[2023-06-20] MEDS: Albumin 25% 25 GM (100 mL) BOT IVPB SCH (12:00)
[2023-06-20 16:58] LABS: Hematocrit 31.1 % (36.0-47.0); Hemoglobin 9.3 g/dL (12.0-16.0); Platelet Count 164 10x3/uL (130-400)
[2023-06-21 05:58] LABS: #Basophils 0.03 10x3/uL (0.0-0.2); %Basophils 0.4 % (0.0-1.0); %Eosinophils 4.2 % (0.0-10.0); %Lymphocytes 25.7 % (21.0-51.0); %Monocytes 11.7 % (0.0-10.0); %Neutrophils 57.7 % (42.0-75.0); Hematocrit 32.4 % (36.0-47.0); Hemoglobin 9.3 g/dL (12.0-16.0); Mean Corpuscular HGB CONC 28.7 g/dL (32.0-36.0); Mean Corpuscular Hemoglobin 27.5 pg (27.0-31.0); Mean Corpuscular Volume 95.9 fL (78.0-98.0); Mean Platelet Volume 9.1 fL (7.4-10.4); Platelet Count 161 10x3/uL (130-400); RBC Distribution Width 24.7 % (11.5-14.5); Red Blood Cell (RBC) Count 3.38 mill/uL (4.20-5.40)
[2023-06-21 06:11] LABS: Anion Gap 19 mmol/L (10-20); BUN (Urea Nitrogen) 28 mg/dL (7.0-18.7); Calc. Creatinine Clearance 37 mL/min (70-130); Calcium 9.3 mg/dL (7.8-10.44); Carbon Dioxide 21 mmol/L (22-29); Chloride 100 mmol/L (98-107); Estimated GFR 8; Glucose 128 mg/dL (70-105); Potassium 3.9 mmol/L (3.5-5.1); Sodium 136 mmol/L (136-145)
[2023-06-21] MEDS ORDERED: Heparin 10,000 UNITS/ 10 ML VIAL ONE ×2 (09:21→09:22)
[2023-06-22 05:29] VITALS: BMI 85.3
[2023-06-22 06:59] LABS: #Basophils Less than 0.03 10x3/uL (0.0-0.2); %Basophils 0.3 % (0.0-1.0); %Lymphocytes 26.2 % (21.0-51.0); %Monocytes 12.6 % (0.0-10.0); %Neutrophils 55.7 % (42.0-75.0); Hematocrit 30.4 % (36.0-47.0); Hemoglobin 8.9 g/dL (12.0-16.0); Mean Corpuscular HGB CONC 29.3 g/dL (32.0-36.0); Mean Corpuscular Hemoglobin 28.6 pg (27.0-31.0); Mean Corpuscular Volume 97.7 fL (78.0-98.0); Mean Platelet Volume 9.3 fL (7.4-10.4); Platelet Count 164 10x3/uL (130-400); RBC Distribution Width 25.1 % (11.5-14.5); Red Blood Cell (RBC) Count 3.11 mill/uL (4.20-5.40)
[2023-06-22 16:45] LABS: Hematocrit 32.1 % (36.0-47.0); Hemoglobin 9.4 g/dL (12.0-16.0); Platelet Count 167 10x3/uL (130-400)
[2023-06-23] MEDS: Escitalopram Oxalate 10 mg Tablet PO SCH (10:22)
[2023-06-23] MEDS: Atorvastatin Calcium 40 MG TAB PO SCH (10:22)
[2023-06-23 11:14] LABS: #Basophils Less than 0.03 10x3/uL (0.0-0.2); %Basophils 0.3 % (0.0-1.0); %Eosinophils 6.1 % (0.0-10.0); %Lymphocytes 26.5 % (21.0-51.0); %Monocytes 11.2 % (0.0-10.0); %Neutrophils 55.7 % (42.0-75.0); Hematocrit 33.9 % (36.0-47.0); Hemoglobin 9.8 g/dL (12.0-16.0); Mean Corpuscular HGB CONC 28.9 g/dL (32.0-36.0); Mean Corpuscular Hemoglobin 28.3 pg (27.0-31.0); Platelet Count 174 10x3/uL (130-400); RBC Distribution Width 24.8 % (11.5-14.5); Red Blood Cell (RBC) Count 3.46 mill/uL (4.20-5.40)
[2023-06-23 11:30] LABS: Anion Gap 19 mmol/L (10-20); BUN (Urea Nitrogen) 28 mg/dL (7.0-18.7); Calc. Creatinine Clearance 50 mL/min (70-130); Calcium 9.5 mg/dL (7.8-10.44); Carbon Dioxide 21 mmol/L (22-29); Chloride 101 mmol/L (98-107); Estimated GFR 9; Glucose 117 mg/dL (70-105); Potassium 4.4 mmol/L (3.5-5.1); Sodium 137 mmol/L (136-145)
[2023-06-24 05:09] LABS: #Basophils Less than 0.03 10x3/uL (0.0-0.2); %Basophils 0.4 % (0.0-1.0); %Eosinophils 6.3 % (0.0-10.0); %Lymphocytes 29.4 % (21.0-51.0); %Monocytes 14.3 % (0.0-10.0); %Neutrophils 49.4 % (42.0-75.0); Hematocrit 29.4 % (36.0-47.0); Hemoglobin 8.7 g/dL (12.0-16.0); Mean Corpuscular HGB CONC 29.6 g/dL (32.0-36.0); Mean Corpuscular Hemoglobin 28.4 pg (27.0-31.0); Mean Corpuscular Volume 96.1 fL (78.0-98.0); Mean Platelet Volume 8.9 fL (7.4-10.4); Platelet Count 157 10x3/uL (130-400); RBC Distribution Width 23.9 % (11.5-14.5); Red Blood Cell (RBC) Count 3.06 mill/uL (4.20-5.40)
[2023-06-24 05:43] LABS: Anion Gap 16 mmol/L (10-20); BUN (Urea Nitrogen) 36 mg/dL (7.0-18.7); Calc. Creatinine Clearance 48 mL/min (70-130); Calcium 8.7 mg/dL (7.8-10.44); Carbon Dioxide 23 mmol/L (22-29); Chloride 103 mmol/L (98-107); Estimated GFR 8; Glucose 97 mg/dL (70-105); Potassium 4.3 mmol/L (3.5-5.1); Sodium 138 mmol/L (136-145)
[2023-06-24] MEDS: Pantoprazole DR 40 MG TAB PO SCH (09:27)
[2023-06-24] MEDS: Albumin 25% 25 GM (100 mL) BOT IVPB SCH (09:27)
[2023-06-24] MEDS: Apixaban 5 MG TAB PO SCH (09:28)
[2023-06-24] MEDS ORDERED: EPOETIN ALFA-EPBX (ESRD) 3,000 UNITS/ML VIAL SC SCH (12:00)
[2023-06-24] MEDS ORDERED: EPOETIN ALFA-EPBX (ESRD) 2,000 UNITS/ML VIAL SC SCH (12:00)
[2023-06-24] MEDS: EPOETIN ALFA-EPBX (ESRD) 10,000 UNITS/ML VIAL SC SCH (13:41)
[2023-06-24 19:48] LABS: Hematocrit 29.7 % (36.0-47.0); Hemoglobin 8.7 g/dL (12.0-16.0); Platelet Count 169 10x3/uL (130-400)
[2023-06-25 06:05] LABS: #Basophils 0.03 10x3/uL (0.0-0.2); %Basophils 0.6 % (0.0-1.0); %Eosinophils 9.2 % (0.0-10.0); %Lymphocytes 29.1 % (21.0-51.0); %Neutrophils 47.9 % (42.0-75.0); Hematocrit 27.8 % (36.0-47.0); Hemoglobin 8.4 g/dL (12.0-16.0); Mean Corpuscular HGB CONC 30.2 g/dL (32.0-36.0); Mean Corpuscular Hemoglobin 28.9 pg (27.0-31.0); Mean Corpuscular Volume 95.5 fL (78.0-98.0); Mean Platelet Volume 9.2 fL (7.4-10.4); Platelet Count 164 10x3/uL (130-400); RBC Distribution Width 23.4 % (11.5-14.5); Red Blood Cell (RBC) Count 2.91 mill/uL (4.20-5.40)
[2023-06-25 06:15] LABS: Anion Gap 19 mmol/L (10-20); BUN (Urea Nitrogen) 44 mg/dL (7.0-18.7); Calc. Creatinine Clearance 49 mL/min (70-130); Calcium 9.3 mg/dL (7.8-10.44); Carbon Dioxide 21 mmol/L (22-29); Chloride 103 mmol/L (98-107); Estimated GFR 8; Glucose 99 mg/dL (70-105); Potassium 4.4 mmol/L (3.5-5.1); Sodium 139 mmol/L (136-145)
[2023-06-25] MEDS: Sodium Chloride 0.9% 1,000 ML IV SCH (07:52)
[2023-06-25 09:48] LABS: Bilirubin Negative (Negative); Blood, Urine Moderate (Negative); Glucose, Urine (Dipstick) Negative (Negative); Ketone, Urine Negative (Negative); Leukocyte Large (Negative); Nitrite Negative (Negative); Protein, Urine (Dipstick) 100 mg/dL (Neg-Trace); Urobilinogen 0.2 mg/dL (Less than 2); pH, Urine 5.5 (5.0-9.0)
[2023-06-25 10:15] LABS: Bacteria/HPF 2+ HPF (None Seen); Squamous Epithelial 21-50 HPF (0-3); WBC/HPF Greater than 50 HPF (0-3)
[2023-06-25 10:18] LABS: Clarity Cloudy (Clear)
[2023-06-25] MEDS: Bicillin LA 2.4 MILL.UNITS/4 ML SYRINGE IM SCH (10:39)
[2023-06-25 10:46] LABS: Creatinine, Urine 170.37 mg/dL (47-110)
[2023-06-25 12:34] VITALS: BMI 83.2
[2023-06-26 06:30] LABS: #Basophils Less than 0.03 10x3/uL (0.0-0.2); %Basophils 0.4 % (0.0-1.0); %Eosinophils 10.3 % (0.0-10.0); %Monocytes 11.6 % (0.0-10.0); %Neutrophils 47.5 % (42.0-75.0); Hematocrit 28.5 % (36.0-47.0); Hemoglobin 8.6 g/dL (12.0-16.0); Mean Corpuscular HGB CONC 30.2 g/dL (32.0-36.0); Mean Corpuscular Hemoglobin 28.9 pg (27.0-31.0); Mean Corpuscular Volume 95.6 fL (78.0-98.0); Mean Platelet Volume 8.9 fL (7.4-10.4); Platelet Count 176 10x3/uL (130-400); RBC Distribution Width 23.4 % (11.5-14.5); Red Blood Cell (RBC) Count 2.98 mill/uL (4.20-5.40)
[2023-06-26 06:51] LABS: Anion Gap 17 mmol/L (10-20); BUN (Urea Nitrogen) 48 mg/dL (7.0-18.7); Calc. Creatinine Clearance 54 mL/min (70-130); Calcium 9.2 mg/dL (7.8-10.44); Carbon Dioxide 22 mmol/L (22-29); Chloride 105 mmol/L (98-107); Estimated GFR 10; Glucose 85 mg/dL (70-105); Potassium 4.6 mmol/L (3.5-5.1); Sodium 139 mmol/L (136-145)
[2023-06-26 18:47] LABS: Hematocrit 33.6 % (36.0-47.0); Hemoglobin 10.2 g/dL (12.0-16.0); Platelet Count 170 10x3/uL (130-400)
[2023-06-27 06:09] LABS: #Basophils 0.03 10x3/uL (0.0-0.2); %Basophils 0.5 % (0.0-1.0); %Eosinophils 9.6 % (0.0-10.0); %Lymphocytes 32.6 % (21.0-51.0); %Monocytes 11.1 % (0.0-10.0); Hematocrit 32.6 % (36.0-47.0); Hemoglobin 9.6 g/dL (12.0-16.0); Mean Corpuscular HGB CONC 29.4 g/dL (32.0-36.0); Mean Corpuscular Hemoglobin 28.7 pg (27.0-31.0); Mean Corpuscular Volume 97.6 fL (78.0-98.0); Mean Platelet Volume 8.8 fL (7.4-10.4); Platelet Count 214 10x3/uL (130-400); RBC Distribution Width 23.4 % (11.5-14.5); Red Blood Cell (RBC) Count 3.34 mill/uL (4.20-5.40)
[2023-06-27 07:07] LABS: Chloride 106 mmol/L (98-107); Potassium 4.6 mmol/L (3.5-5.1); Sodium 140 mmol/L (136-145)
[2023-06-27 07:12] LABS: Anion Gap 19 mmol/L (10-20); BUN (Urea Nitrogen) 48 mg/dL (7.0-18.7); Calc. Creatinine Clearance 57 mL/min (70-130); Calcium 9.5 mg/dL (7.8-10.44); Carbon Dioxide 20 mmol/L (22-29); Estimated GFR 10; Glucose 88 mg/dL (70-105)
[2023-06-28 05:26] LABS: #Basophils 0.04 10x3/uL (0.0-0.2); %Basophils 0.8 % (0.0-1.0); %Eosinophils 10.7 % (0.0-10.0); %Monocytes 11.9 % (0.0-10.0); %Neutrophils 49.4 % (42.0-75.0); Hematocrit 30.9 % (36.0-47.0); Hemoglobin 9.2 g/dL (12.0-16.0); Mean Corpuscular HGB CONC 29.8 g/dL (32.0-36.0); Mean Corpuscular Hemoglobin 28.7 pg (27.0-31.0); Mean Corpuscular Volume 96.3 fL (78.0-98.0); Mean Platelet Volume 8.8 fL (7.4-10.4); Platelet Count 185 10x3/uL (130-400); RBC Distribution Width 23.3 % (11.5-14.5); Red Blood Cell (RBC) Count 3.21 mill/uL (4.20-5.40)
[2023-06-28 06:13] LABS: Anion Gap 19 mmol/L (10-20); BUN (Urea Nitrogen) 48 mg/dL (7.0-18.7); Calc. Creatinine Clearance 64 mL/min (70-130); Calcium 9.1 mg/dL (7.8-10.44); Carbon Dioxide 18 mmol/L (22-29); Chloride 109 mmol/L (98-107); Estimated GFR 12; Glucose 85 mg/dL (70-105); Potassium 4.8 mmol/L (3.5-5.1); Sodium 141 mmol/L (136-145)
[2023-06-28] MEDS: Amoxicillin/Potassium Clav 875 MG TAB PO SCH (09:12)
[2023-06-28] MEDS: Doxycycline 100 MG CAP PO SCH (09:12)
[2023-06-28] MEDS: metroNIDAZOLE 500 MG TAB PO SCH (20:35)
[2023-06-29 06:15] LABS: #Basophils 0.03 10x3/uL (0.0-0.2); %Basophils 0.6 % (0.0-1.0); %Eosinophils 11.5 % (0.0-10.0); %Monocytes 11.7 % (0.0-10.0); Hematocrit 30.9 % (36.0-47.0); Mean Corpuscular HGB CONC 29.1 g/dL (32.0-36.0); Mean Corpuscular Hemoglobin 27.9 pg (27.0-31.0); Mean Corpuscular Volume 95.7 fL (78.0-98.0); Mean Platelet Volume 8.9 fL (7.4-10.4); Platelet Count 204 10x3/uL (130-400); RBC Distribution Width 23.1 % (11.5-14.5); Red Blood Cell (RBC) Count 3.23 mill/uL (4.20-5.40)
[2023-06-29] MEDS: Labetalol HCl 100 MG/20 ML VIAL SLOW IVP PRN (06:23)
[2023-06-29 06:55] LABS: Anion Gap 17 mmol/L (10-20); BUN (Urea Nitrogen) 44 mg/dL (7.0-18.7); Calc. Creatinine Clearance 73 mL/min (70-130); Calcium 8.9 mg/dL (7.8-10.44); Carbon Dioxide 19 mmol/L (22-29); Chloride 114 mmol/L (98-107); Estimated GFR 14; Glucose 66 mg/dL (70-105); Potassium 4.8 mmol/L (3.5-5.1); Sodium 145 mmol/L (136-145)
[2023-06-30 06:20] LABS: #Basophils Less than 0.03 10x3/uL (0.0-0.2); %Basophils 0.4 % (0.0-1.0); %Eosinophils 11.5 % (0.0-10.0); %Lymphocytes 27.3 % (21.0-51.0); %Monocytes 11.5 % (0.0-10.0); %Neutrophils 49.1 % (42.0-75.0); Hematocrit 30.1 % (36.0-47.0); Hemoglobin 8.7 g/dL (12.0-16.0); Mean Corpuscular HGB CONC 28.9 g/dL (32.0-36.0); Mean Corpuscular Hemoglobin 28.5 pg (27.0-31.0); Mean Corpuscular Volume 98.7 fL (78.0-98.0); Mean Platelet Volume 8.8 fL (7.4-10.4); Platelet Count 186 10x3/uL (130-400); RBC Distribution Width 22.8 % (11.5-14.5); Red Blood Cell (RBC) Count 3.05 mill/uL (4.20-5.40)
[2023-06-30 06:32] LABS: Anion Gap 16 mmol/L (10-20); BUN (Urea Nitrogen) 41 mg/dL (7.0-18.7); Calc. Creatinine Clearance 81 mL/min (70-130); Calcium 8.7 mg/dL (7.8-10.44); Carbon Dioxide 20 mmol/L (22-29); Chloride 115 mmol/L (98-107); Estimated GFR 16; Glucose 70 mg/dL (70-105); Potassium 4.9 mmol/L (3.5-5.1); Sodium 146 mmol/L (136-145)
[2023-06-30 06:46] LABS: Anisocytosis SLIGHT = 6-15 cells HPF (0-5); Hypochromia SLIGHT = 6-15 cells HPF (0-5); Platelet Adequacy Comment Platelets Normal; Polychromasia SLIGHT = 2-3 cells HPF (0-2)
[2023-06-30] MEDS: Carvedilol 6.25 MG TAB PO SCH (16:52)
[2023-06-30 23:48] LABS: Hematocrit 28.6 % (36.0-47.0); Hemoglobin 8.6 g/dL (12.0-16.0); Platelet Count 214 10x3/uL (130-400)
[2023-07-01 05:47] LABS: #Basophils Less than 0.03 10x3/uL (0.0-0.2); %Basophils 0.4 % (0.0-1.0); %Eosinophils 10.2 % (0.0-10.0); %Lymphocytes 27.8 % (21.0-51.0); %Neutrophils 51.6 % (42.0-75.0); Hematocrit 31.7 % (36.0-47.0); Hemoglobin 9.3 g/dL (12.0-16.0); Mean Corpuscular HGB CONC 29.3 g/dL (32.0-36.0); Mean Corpuscular Volume 98.8 fL (78.0-98.0); Mean Platelet Volume 8.9 fL (7.4-10.4); Platelet Count 213 10x3/uL (130-400); RBC Distribution Width 22.5 % (11.5-14.5); Red Blood Cell (RBC) Count 3.21 mill/uL (4.20-5.40)
[2023-07-01 06:11] LABS: Anion Gap 18 mmol/L (10-20); BUN (Urea Nitrogen) 35 mg/dL (7.0-18.7); Calc. Creatinine Clearance 95 mL/min (70-130); Calcium 8.9 mg/dL (7.8-10.44); Carbon Dioxide 20 mmol/L (22-29); Chloride 114 mmol/L (98-107); Estimated GFR 19; Glucose 71 mg/dL (70-105); Potassium 5.1 mmol/L (3.5-5.1); Sodium 147 mmol/L (136-145)
[2023-07-01] MEDS: hydrALAZINE 25 MG TAB PO SCH (09:27)
[2023-07-01] MEDS: Lidocaine 1% w/Epinephrine 1:100K 20 ML VIAL ONE (11:45)
[2023-07-01] MEDS: Lidocaine 1% w/Epinephrine 1:100K 20 ML VIAL IJ SCH (11:45)
[2023-07-01] MEDS: Carvedilol 25 MG TAB PO SCH (16:48)
[2023-07-02 05:59] LABS: #Basophils Less than 0.03 10x3/uL (0.0-0.2); %Basophils 0.4 % (0.0-1.0); %Eosinophils 11.5 % (0.0-10.0); %Lymphocytes 32.6 % (21.0-51.0); %Monocytes 10.3 % (0.0-10.0); Hematocrit 28.9 % (36.0-47.0); Hemoglobin 8.5 g/dL (12.0-16.0); Mean Corpuscular HGB CONC 29.4 g/dL (32.0-36.0); Mean Corpuscular Hemoglobin 28.7 pg (27.0-31.0); Mean Corpuscular Volume 97.6 fL (78.0-98.0); Mean Platelet Volume 9.2 fL (7.4-10.4); Platelet Count 210 10x3/uL (130-400); RBC Distribution Width 22.5 % (11.5-14.5); Red Blood Cell (RBC) Count 2.96 mill/uL (4.20-5.40)
[2023-07-02 09:10] VITALS: BP 173/124; TEMP 98.4
[2023-07-02] MEDS: Ondansetron PF 4 MG/2 ML Vial IVP SCH (10:22)
[2023-07-02 12:11] LABS: Actual Bicarbonate (HCO3v) 17.8 mEq/L (22-28); Base Excess -6.7 mEq/L (-2.0 to +3.0); Chloride (VBG) 111 mmol/L (98-106); Hematocrit-VBG 29 % (36.0-47.0); Potassium (VBG) 5.03 mmol/L (3.70-5.30); Sodium 142 mmol/L (133-146); pH (venous) 7.364 (7.32-7.43)
== END 2023-07-02 13:30 | disposition home or self-care (01) | DRG 3 ==
LOC: ERS 18:21 → 2SW 05-30 01:59 → CCU 05-30 16:02 → IMCU/EMU 06-09 17:16 → T4-A 06-10 13:33
PROVIDERS: ADMIT Student in an Organized Health Care Education/Training Program; ATTEND Hospitalist
PROC: 0DTJ4ZZ Resection of Appendix, Percutaneous Endoscopic Approach (ICD-10-PCS; 2023-05-30)
PROC: 0U904ZZ Drainage of Right Ovary, Percutaneous Endoscopic Approach (ICD-10-PCS; 2023-05-30)
PROC: 0U954ZZ Drainage of Right Fallopian Tube, Percutaneous Endoscopic Approach (ICD-10-PCS; 2023-05-30)
PROC: 30243N1 Transfusion of Nonautologous Red Blood Cells into Central Vein, Percutaneous Approach (ICD-10-PCS; 2023-05-31)
PROC: 0JH63XZ Insertion of Tunneled Vascular Access Device into Chest Subcutaneous Tissue and Fascia, Percutaneous Approach (ICD-10-PCS; 2023-06-01)
PROC: 02HV33Z Insertion of Infusion Device into Superior Vena Cava, Percutaneous Approach (ICD-10-PCS; 2023-06-01)
PROC: B518YZA Fluoroscopy of Superior Vena Cava using Other Contrast, Guidance (ICD-10-PCS; 2023-06-01)
PROC: 5A1D70Z Performance of Urinary Filtration, Intermittent, Less than 6 Hours Per Day (ICD-10-PCS; 2023-06-01)
PROC: 0B110F4 Bypass Trachea to Cutaneous with Tracheostomy Device, Open Approach (ICD-10-PCS; principal; 2023-06-05)
PROC: 5A1955Z Respiratory Ventilation, Greater than 96 Consecutive Hours (ICD-10-PCS; 2023-06-05)
PROC: 0JPTXXZ Removal of Tunneled Vascular Access Device from Trunk Subcutaneous Tissue and Fascia, External Approach (ICD-10-PCS; 2023-07-01)
DX: A41.9 Sepsis, unspecified organism (principal); J96.01 Acute respiratory failure with hypoxia; N18.6 End stage renal disease; G93.41 Metabolic encephalopathy; N17.0 Acute kidney failure with tubular necrosis; D62 Acute posthemorrhagic anemia; E66.2 Morbid (severe) obesity with alveolar hypoventilation; I12.0 Hypertensive chronic kidney disease with stage 5 chronic kidney disease or end stage renal disease; I82.442 Acute embolism and thrombosis of left tibial vein; Z68.45 Body mass index [BMI] 70 or greater, adult; K21.9 Gastro-esophageal reflux disease without esophagitis; E78.5 Hyperlipidemia, unspecified; N70.93 Salpingitis and oophoritis, unspecified; E88.09 Other disorders of plasma-protein metabolism, not elsewhere classified; E11.22 Type 2 diabetes mellitus with diabetic chronic kidney disease; E11.65 Type 2 diabetes mellitus with hyperglycemia; A51.9 Early syphilis, unspecified; D63.1 Anemia in chronic kidney disease; E88.810 Metabolic syndrome; E87.5 Hyperkalemia; Z79.4 Long term (current) use of insulin; Z79.899 Other long term (current) drug therapy
CPT/HCPCS: 36415; 36416; 36430; 36600; 71045; 74018; 76770; 80048; 80053; 80069; 80306; 80307; 81001; 82010; 82040; 82570; 82728; 82805; 83036; 83540; 83550; 83605; 83690; 83735; 83880; 84100; 84300; 84439; 84443; 84484; 84703; 85025; 85610; 85730; 86593; 86704; 86706; 86780; 86803; 86850; 86900; 86901; 87040; 87077; 87086; 87324; 87340; 87389; 87449; 88304; 90935; 93005; 93306; 93970; 94002; 94003; 94640; 96361; 96365; 96366; 96367; 96375; A4314; A4649; A6258; A7521; C1713; C1750; C1751; C1889; C9113; G0257; J0171; J0360; J0561; J0665; J0692; J0696; J1100; J1642; J1644; J1650; J1815; J1885; J2001; J2060; J2250; J2270; J2272; J2405; J2543; J2704; J2765; J2920; J2997; J3010; J3370; J3490; J7050; J7120; J7620; P9016; P9047; Q5105; Q5106; Q9967; S0028

== ENCOUNTER 2023-07-21 13:58 | Emergency (ER) | payer MEDICAID ==
[2023-07-21 14:56] LABS: #Basophils 0.03 10x3/uL (0.0-0.2); %Basophils 0.5 % (0.0-1.0); %Eosinophils 3.7 % (0.0-10.0); %Lymphocytes 27.2 % (21.0-51.0); %Monocytes 9.7 % (0.0-10.0); %Neutrophils 58.6 % (42.0-75.0); Hematocrit 28.8 % (36.0-47.0); Hemoglobin 8.7 g/dL (12.0-16.0); Mean Corpuscular HGB CONC 30.2 g/dL (32.0-36.0); Mean Corpuscular Hemoglobin 28.1 pg (27.0-31.0); Mean Corpuscular Volume 92.9 fL (78.0-98.0); Mean Platelet Volume 9.1 fL (7.4-10.4); Platelet Count 216 10x3/uL (130-400); RBC Distribution Width 18.7 % (11.5-14.5)
[2023-07-21 15:10] LABS: ALT (SGPT) 13 U/L (8-55); AST (SGOT) 21 U/L (5-34); Albumin 3.1 g/dL (3.5-5.0); Alkaline Phosphatase 71 U/L (40-110); Anion Gap 16 mmol/L (10-20); BUN (Urea Nitrogen) 8 mg/dL (7.0-18.7); Bilirubin, Total 0.8 mg/dL (0.2-1.2); Calc. Creatinine Clearance 0 mL/min (70-130); Calcium 7.6 mg/dL (7.8-10.44); Carbon Dioxide 21 mmol/L (22-29); Chloride 107 mmol/L (98-107); Estimated GFR 44; Globulin 3.9 g/dL (2.4-3.5); Glucose 114 mg/dL (70-105); Potassium 4.2 mmol/L (3.5-5.1); Sodium 140 mmol/L (136-145)
[2023-07-21 15:15] LABS: Troponin I 0.025 ng/mL (< 0.028)
== END 2023-07-21 18:42 | disposition home or self-care (01) ==
LOC: ERS 13:58
DX: R06.00 Dyspnea, unspecified (principal); I10 Essential (primary) hypertension; E11.9 Type 2 diabetes mellitus without complications; E78.00 Pure hypercholesterolemia, unspecified; Z79.4 Long term (current) use of insulin; Z79.899 Other long term (current) drug therapy
CPT/HCPCS: 71045; 71046; 80053; 83880; 84484; 85025; 93005; 93970